=== PATIENT | male | born 1950 | race Caucasian/White ===

== ENCOUNTER 2017-04-08 02:22 | Inpatient (IN) | payer MEDICARE ==
[~2017-04-08] VITALS: Ht 172.7 cm; Wt 106.3 kg
[2017-04-08] MEDS ORDERED: ASPI325T80 PO (02:38)
[2017-04-08] MEDS ORDERED: LORA10TA3 PO (02:40)
[2017-04-08] MEDS ORDERED: DILTIAZEM 5 MG/ML, 5ML IVPush STA (02:45)
[2017-04-08] MEDS ORDERED: DILTIAZEM 125 MG in DEXTROSE 5% 100 ML IV SCH (02:45)
[2017-04-08] MEDS ORDERED: DILTIAZEM 5 MG/ML, 5ML ONE (02:46)
[2017-04-08] MEDS ORDERED: ASPIRIN 81 MG TABLET CHEW PO ONE (03:00)
[2017-04-08] MEDS ORDERED: DILTIAZEM 5 MG/ML, 5ML IVPush ONE (03:08)
[2017-04-08 03:10] LABS: BLOOD UREA NITROGEN 12 mg/dL (7-18)
[2017-04-08] MEDS ORDERED: DILTIAZEM IV SCH (03:14)
[2017-04-08] MEDS ORDERED: SODIUM CHLORIDE 0.9% IV SCH (03:14)
[2017-04-08] MEDS ORDERED: DILTIAZEM 125 MG in SODIUM CHLORIDE 0.9% 100 ML IV SCH (03:30)
[2017-04-08] MEDS ORDERED: ENOXAPARIN 120MG/0.8ML SQ ONE (03:30)
[2017-04-08] MEDS ORDERED: SODIUM CHLORIDE 0.9% 1,000 ML IV SCH (04:18)
[2017-04-08] MEDS ORDERED: LORazepam 2 MG/ML, 1ML IVPush PRN (04:30)
[2017-04-08] MEDS ORDERED: GUAIFENESIN/DM 200-20MG, 10ML UDC PO PRN (04:30)
[2017-04-08] MEDS ORDERED: ONDANSETRON 2MG/ML, 2ML IVPush PRN (04:30)
[2017-04-08] MEDS ORDERED: HYDROcodone/APAP 5/325 TABLET PO PRN (04:30)
[2017-04-08 04:43] VITALS: BP 114/76
[2017-04-08] MEDS ORDERED: METOPROLOL TARTRATE 50 MG TABLET PO SCH (06:00)
[2017-04-08 06:50] LABS: IS PT STATUS REG ER OR PRE ER? NO
[2017-04-08 07:22] VITALS: BP 121/85
[2017-04-08] MEDS ORDERED: PNEUMOCOCCAL 23 VACCINE IM-VACC ONE (08:30)
[2017-04-08] MEDS ORDERED: LORATADINE 10 MG TABLET PO SCH (09:00)
[2017-04-08] MEDS ORDERED: FAMOTIDINE 20 MG TABLET PO SCH (09:00)
[2017-04-08 11:29] LABS: IS PT STATUS REG ER OR PRE ER? NO
[2017-04-08] MEDS ORDERED: REGADENOSON 0.4 MG/5 ML SYRINGE ONE (12:22)
[2017-04-08 14:58] VITALS: BP 146/87
[2017-04-09] MEDS ORDERED: ASPIRIN 325 MG TABLET PO SCH (09:00)
== END 2017-04-08 19:40 | disposition home or self-care (01) | DRG 310 ==
LOC: ED 03:00 → EDIP 03:18 → 5SO 04:24
PROVIDERS: ADMIT Internal Medicine; ATTEND Internal Medicine
PROC: 5A2204Z Restoration of Cardiac Rhythm, Single (ICD-10-PCS; principal; 2017-04-08)
DX: I48.0 Paroxysmal atrial fibrillation (principal); F41.9 Anxiety disorder, unspecified; I11.0 Hypertensive heart disease with heart failure; I50.9 Heart failure, unspecified; M19.90 Unspecified osteoarthritis, unspecified site; Z83.3 Family history of diabetes mellitus; Z79.82 Long term (current) use of aspirin
CPT/HCPCS: 36415; 71010; 78452; 80048; 81003; 82040; 83735; 84100; 84439; 84443; 84484; 85025; 85610; 85730; 90732; 93005; 93017; 93306; 96365; 96372; 96375; J1650; J2785; A9502; C9898; J7030